=== PATIENT | male | born 1985 | race Caucasian/White ===

== ENCOUNTER 2018-04-06 16:54 | Emergency (ER) | payer SELFPAY | END 2018-04-06 20:13 | disposition left against medical advice (07) | LOC: COL.ER 16:54 | DX: S02.2XXA Fracture of nasal bones, initial encounter for closed fracture (principal); S01.81XA Laceration without foreign body of other part of head, initial encounter; Z23 Encounter for immunization; Y09 Assault by unspecified means; Y92.511 Restaurant or cafe as the place of occurrence of the external cause ==